=== PATIENT | male | born 1950 ===

== ENCOUNTER 2017-01-10 12:33 | Day surgery (SDC) | payer MEDICARE ==
[2017-01-02 11:24] VITALS: BMI 29.5
[2017-01-10 13:01] LABS: BASO # 0.07 K/mm3 (0.0-2.0); BASO % 1.1 % (0.0-3.0); EOS # 1.6 (0.0-0.7); GRAN # 2.74 (1.4-6.5); GRAN % 41.2 % (50.0-68.0); HEMATOCRIT 43.1 % (42.0-52.0); LYMPH # 1.8 (1.2-3.4); LYMPH % 26.7 % (22.0-35.0); MEAN CORPUSCULAR HEMOGLOBIN 27.8 pg (25.0-35.0); MEAN CORPUSCULAR HGB CONC 34.3 g/dl (31.0-37.0); MEAN PLATELET VOLUME 9.7 fl (7.0-11.0); MONO # 0.5 (0.1-0.6); MONO % 7.5 % (1.0-6.0); PLATELET COUNT 328 10^3/uL (120.0-450.0); RED CELL DISTRIBUTION WIDTH 14.1 % (11.5-14.5); WHITE BLOOD COUNT 6.6 10^3/ul (4.5-11.0)
[2017-01-10 13:04] LABS: ADD MANUAL DIFF? NO
[2017-01-10 13:05] LABS: EOS % 23.5 % (1.5-5.0)
[2017-01-10 13:10] LABS: ALB/GLOB RATIO 1.1 (1.1-1.8); ALKALINE PHOSPHATASE 55 U/L (38-133); ALT/SGPT 24 U/L (7-56); AST/SGOT 32 U/L (15-59); BILIRUBIN,TOTAL 0.7 mg/dL (0.2-1.3); BLOOD UREA NITROGEN 22 mg/dL (7-21); CALCIUM 9.5 mg/dL (8.4-10.5); CARBON DIOXIDE 28 mmol/L (21-33); CHLORIDE 102 mmol/L (95-110); GFR AFRICAN-AMERICAN > 60; GLUCOSE,RANDOM 95 mg/dL (70-110); SODIUM 141 mmol/L (132-148); TOTAL PROTEIN 8.3 g/dL (5.8-8.3)
[2017-01-10 13:12] LABS: INR 1.04 (0.93-1.08); PARTIAL THROMBOPLASTIN TIME 29.4 Seconds (23.7-30.8)
[2017-01-10] MEDS ORDERED: Lidocaine 2% Inj (20ml) ONE (15:04)
[2017-01-10] MEDS ORDERED: Midazolam 2 MG/2 ML VIAL ONE (15:04)
[2017-01-10] MEDS ORDERED: Iodixanol 320 MG/ML 200 ML BOTTLE IV ONE (15:04)
--- NOTE | 2017-01-10 16:11 | CP.PCM.PN ---
Subjective - Date & Time of Evaluation Date of Evaluation: 01/10/17 Time of Evaluation: 16:10 - Subjective Subjective: patient is s/p cardiac cath. no significant CAD. Medical therapy. same medications Objective - Vital Signs/Intake and Output Vital Signs (last 24 hours): Temp Pulse Resp BP Pulse Ox 97.4 F L 63 20 109/77 95 01/10/17 13:06 01/10/17 13:06 01/10/17 13:06 01/10/17 13:06 01/10/17 13:06 - Labs Labs: 01/10/17 12:45 01/10/17 12:45 PT 11.2 Seconds (9.9-11.8) 01/10/17 12:45 INR 1.04 (0.93-1.08) 01/10/17 12:45 APTT 29.4 Seconds (23.7-30.8) 01/10/17 12:45
[2017-01-10 16:13] VITALS: TEMP 97.3
[2017-01-10] MEDS ORDERED: Sodium Chloride 0.9% 1,000 ML IV SCH (16:15)
--- NOTE | 2017-01-10 16:19 | CARD ---
APPROVED REPORT Procedure(s) performed: Left Heart Catheterization Selective Right and Left Coronary Angiography Left Ventriculogram HISTORY The patient is a 66 year-old Male with a history of : hypertension , dyslipidemia . INDICATION The indication(s) include : positive stress test, unstable angina . CASE TECHNIQUE The was infiltrated with 2% Lidocaine subcutaneous anesthesia. A 6 Fr Coronary angiography was performed using coronary diagnostic catheters. Closure device was deployed with a 6 Fr Angio-Seal without any complications. The patient tolerated the procedure well and there were no complications associated with the procedure. Vessel Analysis The patient's coronary anatomy is right dominant. The left main coronary artery is a medium size vessel without stenosis. The left main bifurcates to the left anterior descending and circumflex. The left anterior descending artery is a medium size vessel with intimal irregularities and without significant stenosis. The circumflex artery is a medium size vessel without significant stenosis. The right coronary artery is a medium size vessel without significant stenosis. Left Ventricle There was no cardiomyopathy. The left ventricular ejection fraction is estimated to be 55%. There was no gradient across the aortic valve upon pullback. Conclusion No significant CAD. Normal left ventricular function. Recommendations Aggressive Medical Therapy
[2017-01-10 18:14] VITALS: BP 114/66; PULSE 66; RESP 18; O2SAT 98
== END 2017-01-10 18:00 | disposition home or self-care (01) ==
LOC: CATH 12:33
PROVIDERS: ATTEND Internal Medicine Cardiovascular Disease
DX: I20.0 Unstable angina (principal); I10 Essential (primary) hypertension; E78.5 Hyperlipidemia, unspecified; R94.39 Abnormal result of other cardiovascular function study; F17.200 Nicotine dependence, unspecified, uncomplicated
CPT/HCPCS: 36415; 80053; 85025; 85610; 85730; 86850; 86900; 93458; 99152; C1760; C1769; C2629; J1644; J2250; J3010; J7040 ×2